=== PATIENT | female | born 1970 | race African-American/Black ===

== ENCOUNTER 2016-08-21 22:24 | Emergency (ER) | payer OTHER ==
[~2016-08-21 22:24] MED LIST: ALBUTEROL17 GM INH; AMOXICILLIN PO; AMOXICILLIN500 M1 PO; CALCIUM + D 6001 TA1 PO; CLARITIN D PO; FLEXERIL PO; FLEXERIL10 M1 PO; IRON1 TAB PO; MEDROL DOSEPAK4 MG DOB; NAPROXEN PO; NEURONTIN100 MG PO; NEURONTIN300 MG PO; NO MEDICATIONS; PHENERGAN DM PO; PHENTERMINE; PREDNISONE PO; PRILOSEC20 MG PO; PROAIR HFA8.5 GM IH; PROMETHAZINE D118 ML PO; VICODIN 5/1 TAB 5/50 PO; VOLTAREN75 MG PO; ZITHROMAX PO; ZOFRAN ODT4 MG/UDTAB PO
[2016-08-21 22:43] LABS: INFLUENZA A NEG (NEG); INFLUENZA B NEG (NEG)
[2016-08-21] MEDS ORDERED: ZOFRAN ODT4 M1 PO (22:56)
[2016-08-21] MEDS ORDERED: VOLTAREN75 MG PO (22:56)
[2016-08-21] MEDS ORDERED: AUGMENTIN PO (22:57)
== END 2016-08-21 22:57 | disposition home or self-care (01) ==
LOC: SED 22:24
PROVIDERS: Emergency Medicine
DX: J01.00 Acute maxillary sinusitis, unspecified (principal); E11.9 Type 2 diabetes mellitus without complications; J45.909 Unspecified asthma, uncomplicated; G62.9 Polyneuropathy, unspecified; F17.210 Nicotine dependence, cigarettes, uncomplicated; Z90.710 Acquired absence of both cervix and uterus; Z98.51 Tubal ligation status; Z79.899 Other long term (current) drug therapy
CPT/HCPCS: 87651; 87804; 99283